=== PATIENT | female | born 1975 | race Caucasian/White ===

== ENCOUNTER → 2020-12-18 | Outpatient (CLI) | payer OTHER | LOC: HEART 5 07:45 | DX: I47.1 Supraventricular tachycardia (principal); I20.9 Angina pectoris, unspecified | CPT/HCPCS: 78452; A9502 ==

== ENCOUNTER 2021-04-21 08:45 | Inpatient (IN) | payer OTHER ==
[~2021-04-21] VITALS: Ht 175.3 cm; Wt 99.8 kg
[2021-04-21 09:51] LABS: HEMOGLOBIN 12.4 gm/dl (12.3-15.3); RED BLOOD COUNT 4.46 M/UL (4.00-5.10); WHITE BLOOD COUNT 6.8 K/UL (4.5-11.0)
[2021-04-21] MEDS ORDERED: ASPIRIN CHEWABL81 MG PO (10:01)
[2021-04-21] MEDS ORDERED: IBU800 MG PO (10:02)
[2021-04-21] MEDS ORDERED: METOPROLOL TART25 MG PO (10:03)
[2021-04-21] MEDS ORDERED: NITROGLYCERIN0.4 MG SL (10:04)
[2021-04-21] MEDS ORDERED: ISOSORBIDE MONO30 MG PO (10:05)
[2021-04-21] MEDS ORDERED: OMEPRAZOLE40 MG PO (10:05)
[2021-04-21 10:13] LABS: BUN/CREATININE RATIO 28 (0-10)
== END 2021-04-22 09:50 | disposition home or self-care (01) | DRG 274 ==
LOC: CATH 08:45 → PROG CARE 19:13 → CATH 19:13 → PROG CARE 19:33
PROVIDERS: ADMIT Internal Medicine Cardiovascular Disease
PROC: 02583ZZ Destruction of Conduction Mechanism, Percutaneous Approach (ICD-10-PCS; principal; 2021-04-21)
PROC: 02K83ZZ Map Conduction Mechanism, Percutaneous Approach (ICD-10-PCS; 2021-04-21)
PROC: 4A023FZ Measurement of Cardiac Rhythm, Percutaneous Approach (ICD-10-PCS; 2021-04-21)
PROC: 4A0234Z Measurement of Cardiac Electrical Activity, Percutaneous Approach (ICD-10-PCS; 2021-04-21)
DX: I47.1 Supraventricular tachycardia (principal); Z20.822 Contact with and (suspected) exposure to COVID-19; K58.9 Irritable bowel syndrome, unspecified; K21.9 Gastro-esophageal reflux disease without esophagitis; Z90.49 Acquired absence of other specified parts of digestive tract; Z90.89 Acquired absence of other organs; Z88.2 Allergy status to sulfonamides; Z98.890 Other specified postprocedural states; Z79.899 Other long term (current) drug therapy
CPT/HCPCS: 36415; 71045; 80048; 85025; 93005; 93609; 93621; 93623; 99152; 99153; C1730; C1733; C1766; J1644; J2250; J3010; J7040; U0002